=== PATIENT | male | born 1950 | race Caucasian/White ===

== ENCOUNTER → 2017-03-26 | Outpatient (CLI) | payer OTHER ==
[~2017-03-26] MED LIST: OMEG10007 PO; PRED20TA PO; SIMV20TA2 PO; TAMS0.4C38 PO
[2017-03-26 12:33] LABS: BLOOD UREA NITROGEN 11 mg/dl (7-18)
[2017-03-26 12:37] LABS: C-REACTIVE PROTEIN < 0.29 mg/dl (0-0.29)
[2017-03-27 12:07] LABS: CREATININE 0.98 mg/dl (0.60-1.40)
== END | disposition home or self-care (01) ==
LOC: C.LABBFT 10:38
PROVIDERS: ATTEND Physician Assistant
DX: Z00.00 Encounter for general adult medical examination without abnormal findings (principal); D32.9 Benign neoplasm of meninges, unspecified

== ENCOUNTER → 2017-03-28 | Outpatient (CLI) | payer OTHER ==
[~2017-03-28] MED LIST changes: +GADAVIST IV PRN
--- NOTE | 2017-03-28 08:36 | DIAGNOSTIC IMAGING REPORT ---
MRI OF THE BRAIN WITHOUT AND WITH IV CONTRAST CLINICAL HISTORY: MENINGIOMA LOSS OF SMELL/TASTE. COMPARISON STUDY: 09/12/2016 TECHNIQUE: MRI of the brain was performed from the vertex to the skull base utilizing various T1 and T2 weighted sequences. Following the IV administration of 8 mL of Gadavist contrast, additional enhanced images were obtained. FINDINGS: Sagittal T1, axial diffusion, proton density and T2 weighted axial, coronal FLAIR, and pre and post axial T1-weighted images were acquired. These were supplemented with post gadolinium coronal T1 weighted images. 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 This remain stable. Axial diffusion-weighted images reveal no evidence of acute or subacute infarction. There is no evidence of ventricular dilatation. Proton density T2-weighted and FLAIR images reveal scattered foci of increased T2 signal within the white matter, likely on a small vessel basis. There are no abnormal flow voids. No additional foci of pathologic enhancement are visualized. IMPRESSION: 1. No acute intracranial findings 2. Stable 18 mm enhancing extra-axial mass, anterior to the right temporal lobe. 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 03/28/2017 8:35 AM Dictated Date/Time: 03/28/2017 8:32 AM
== END | disposition home or self-care (01) ==
LOC: C.MRI 07:34
PROVIDERS: ATTEND Physician Assistant
DX: D32.9 Benign neoplasm of meninges, unspecified (principal)

== ENCOUNTER 2017-04-24 01:53 | Emergency (ER) | payer OTHER ==
[~2017-04-24 01:53] MED LIST changes: -GADAVIST IV PRN; -PRED20TA PO
[2017-04-24] MEDS ORDERED: FAMOTIDINE 20MG/102 ML D5W IV STA (01:59)
[2017-04-24] MEDS ORDERED: DiphenhydrAMINE HCL 50 MG/ML VIAL IV STA (01:59)
[2017-04-24] MEDS ORDERED: SODIUM CHLORIDE 0.9% 1000ML 1,000 ML IV STA (01:59)
[2017-04-24] MEDS ORDERED: DEXAMETHASONE SOD INJ 10 MG/ML VIAL IV ONE (02:00)
[2017-04-24] MEDS ORDERED: PRED20TA PO (02:08)
[2017-04-24 02:25] VITALS: PULSE 55
--- NOTE | 2017-04-24 04:17 | EMERGENCY ROOM VISIT NOTE ---
History Report prepared by Christa: Velia Quevedo Under the Supervision of: Dr. Manny Calderon M.D. First contact with patient: 01:58 Chief Complaint: ALLERGIC REACTION Stated Complaint: HIVES History of Present Illness The patient is a 66 year old male who presents to the Emergency Room with complaints of a sudden diffuse rash to his back and legs that began thirty minutes ago. The patient states that for lunch today he ate [place] food that had shellfish in it, but states that he often eats [place] food. He states that for dinner he had a hamburger and his notes that she used a steak seasoning, but additionally notes that she has used it in the past. The patient denies any shortness of breath, but states that the areas are itchy. He denies using any medications for his symptoms. The patient states that he does get bitten often, but denies any recent insect bites. He reports a history of an enlarged prostate and hyperlipidemia. Source of History: patient Onset: thirty minutes ago Position: arm (bilateral), back Quality: other (rash, diffuse) Timing: other (sudden) Associated Symptoms: No SOB Note: Associated Symptoms: itchiness Review of Systems See HPI for pertinent positives & negatives. A total of 10 systems reviewed and were otherwise negative. Past Medical & Surgical Medical Problems: (1) Enlarged prostate (2) Hyperlipidemia (3) Kidney stone (4) Pneumonia Surgical Problems: (1) H/O hernia repair Family History Diabetes mellitus FHx: cancer Social History Smoking Status: Never Smoker Smokeless Tobacco Use: No Alcohol Use: occasionally Marital Status: Housing Status: lives with significant other Occupation Status: retired Current/Historical Medications Scheduled Fish Oil ([place]-3), 1 CAP PO BID Prednisone (Prednisone), 0 PO DAILY Simvastatin (Zocor), 20 MG PO QPM Tamsulosin Hcl (Flomax), 0.4 MG PO QPM Allergies Coded Allergies: No Known Allergies (Unverified , 12/12/15) Physical Exam Vital Signs Date Time Temp Pulse Resp B/P (MAP) Pulse Ox O2 Delivery O2 Flow Rate FiO2 04/24/17 02:25 55 Pain Rating (0-10): 0 Physical Exam GENERAL: Patient is uncomfortable appearing and in moderate distress. HEENT: No acute trauma, normocephalic atraumatic, mucous membranes moist, no nasal congestion, no scleral icterus. NECK: No stridor, no adenopathy, no meningismus, trachea is midline. LUNGS: No dyspnea. Clear to auscultation and equal bilaterally. No wheeze, no rhonchi. HEART: Regular rate and rhythm. No murmurs, rubs, gallops appreciated. ABDOMEN: Soft, nontender, bowel sounds positive, no masses appreciated, no peritonitis. BACK: No midline tenderness, no CVA tenderness EXTREMITIES: Normal motion all extremities, no cyanosis, no edema. NEUROLOGIC: Alert and oriented, no acute motor or sensory deficits, no focal weakness, cranial nerves grossly intact. SKIN: Diffuse hives, erythema, and welts worse over his bilateral thighs and lower back, but extends over most of his body, no jaundice, no diaphoresis. Medical Decision & Procedures ED Course 0159: Ordered Sodium Chloride 1000 ml @ 999 mls/hr IV, Benadryl Inj 50 mg IV, Famotidine 20 mg IV, Decadron Inj 10 mg IV. 0201: The patient was evaluated in room B10. A complete history and physical exam was performed. 0221: I reevaluated the patient and he is feeling better and his rash is improving. 0330: I reevaluated the patient and he is feeling well. He has had complete resolution of his hives. I discussed the exam findings with him and I discussed the treatment plan. He verbalized complete understanding and agreement. He is ready to go home. Medical Decision Differential: Allergic Reaction, Urticaria, Anaphylaxis, Davison-Ted Syndrome, Toxic Epidermal Necrolysis, Erythema Multiforme, Cellulitis, amongst other etiologies entertained. Medication Reconciliation: I attest that I have personally reviewed the patient 's current medication list. Blood Pressure Screening: Patient was found to have a slightly elevated blood pressure due to circumstances. I do not believe that the patient requires hypertension monitoring. 66 yr old male arrives with quite impressive diffuse hives secondary to allergen of unknown etiology. Would suspect possibly something in seasoning he had on burger, possibly MSG as he had just had [place] earlier. Also notes periodic bug bites as well today. No respiratory nor mucosal involvement. Essentially completely resolved with above meds and patient feeling well. Discharged to home with prolonged pred taper given severity of symptoms on this trip. No indication for epi pen at this time. Follow up with PCP for further discussion. Impression Primary Impression: Allergic reaction Additional Impression: Full body hives Scribe Attestation The scribe's documentation has been prepared under my direction and personally reviewed by me in its entirety. I confirm that the note above accurately reflects all work, treatment, procedures, and medical decision making performed by me. Medication Reconciliation: I attest that I have personally reviewed the patient 's current medication list. Departure Information Dispostion Home / Self-Care Prescriptions Prednisone (Prednisone) 20 Mg Tab 0 PO DAILY, #18 TAB 3 DAILY FOR 3 DAYS, THEN 2 DAILY FOR 3 DAYS, THEN 1 DAILY FOR 3 DAYS. Prov: Manny Calderon M.D. 04/24/17 Forms HOME CARE DOCUMENTATION FORM, IMPORTANT VISIT INFORMATION Patient Instructions My [facility], ED Allergic Reaction General Other Problem Qualifiers
== END 2017-04-24 03:30 | disposition home or self-care (01) ==
LOC: C.EDB 01:54
DX: T78.40XA Allergy, unspecified, initial encounter (principal); X58.XXXA Exposure to other specified factors, initial encounter; L50.0 Allergic urticaria; N40.0 Benign prostatic hyperplasia without lower urinary tract symptoms; E78.5 Hyperlipidemia, unspecified; Z87.442 Personal history of urinary calculi; Z83.3 Family history of diabetes mellitus

== ENCOUNTER → 2017-12-24 | Outpatient (CLI) | payer OTHER ==
[2017-12-24 17:38] LABS: BASO % 0.4 %; BASO ABS # 0.02 K/uL (0-0.2); EOS % 1.3 %; EOS ABS # 0.06 K/uL (0-0.5); HEMATOCRIT 45.2 % (42-52); IG# 0.01 K/uL (0.00-0.02); LYMPH % 32.5 %; LYMPH ABS # 1.47 K/uL (1.2-3.4); MEAN CELL VOLUME 89.2 fL (80-100); MEAN CORPUSCULAR HEMOGLOBIN 29.6 pg (25-34); MEAN CORPUSCULAR HGB CONC 33.2 g/dl (32-36); MEAN PLATELET VOLUME 10.3 fL (7.4-10.4); MONO % 8.2 %; MONO ABS # 0.37 K/uL (0.11-0.59); NEUT % 57.4 %; PLATELET COUNT 186 K/uL (130-400); RED CELL DISTRIBUTION WIDTH CV 14.3 % (11.5-14.5); RED CELL DISTRIBUTION WIDTH SD 46.5 fL (36.4-46.3); WHITE BLOOD COUNT 4.53 K/uL (4.8-10.8)
[2017-12-24 17:45] LABS: BLOOD UREA NITROGEN 14 mg/dl (7-18); CARBON DIOXIDE 32 mmol/L (21-32); CREATININE 1.03 mg/dl (0.60-1.40); SODIUM 140 mmol/L (136-145)
[2017-12-24 17:51] LABS: PTT PATIENT 24.3 SECONDS (21.0-31.0)
== END | disposition home or self-care (01) ==
LOC: C.LABBFT 13:07
PROVIDERS: ATTEND Psychiatry & Neurology Neurology
DX: Z01.818 Encounter for other preprocedural examination (principal)

== ENCOUNTER → 2017-12-24 | Outpatient (CLI) | payer OTHER | END | disposition home or self-care (01) | LOC: C.CPL 14:15 | DX: Z01.818 Encounter for other preprocedural examination (principal) ==

== ENCOUNTER → 2017-12-29 | Outpatient (CLI) | payer OTHER ==
[~2017-12-29] MED LIST changes: +OPTIRAY 320 IV PRN; -SIMV20TA2 PO
--- NOTE | 2017-12-29 14:11 | DIAGNOSTIC IMAGING REPORT ---
SOFT TISSUE NECK WITH CLINICAL HISTORY: 67 years-old Male presenting with R22.0 Mass of pyriform sinus, dysphasia. TECHNIQUE: Multidetector CT of the neck was performed after the administration of intravenous contrast. IV contrast: 92 mL of Optiray 320. A dose lowering technique was used consistent with the principles of ALARA (as low as reasonably achievable). COMPARISON: None. CT DOSE (mGy.cm): The estimated cumulative dose is 574.94 mGy.cm. FINDINGS: [employer] Analyst topogram: Unremarkable. Streak artifact arising from amalgam significantly degrades evaluation of the oral cavity and oropharynx. Allowing for this, a hyperenhancing 2.2 x 1.1 x 2.6 cm mass effaces the left piriform sinus and appears to arise from the anterior wall of the hypopharynx. This extends along the left aryepiglottic fold. Nodular enhancement is noted immediately superior to the cricoid cartilage and posterior to the false vocal folds (series 3 image 273). Severe narrowing of the larynx evident. This also appears to invade the posterior aspect of the right paraglottic fat (series 3 image 260). The superior extent of the mass is located at the level of the hyoid bone and the inferior extent of the mass is located at the superior aspect of the cricoid cartilage. No lymphadenopathy. Cervical vasculature patent. Mild degenerative changes of the cervical spine. Lung apices clear. IMPRESSION: 1. Enhancing 2.2 x 1.1 x 2.6 cm mass centered at the left piriform sinus appears to arise from the anterior wall the hypopharynx and extends along the left aryepiglottic fold directly invading the posterior larynx and posterior right paraglottic fat. No lymphadenopathy. 2. Severe stenosis of the larynx. This is not entirely due to the mass and may be reactive secondary to edema. Direct visualization to be considered. Electronically signed by: Anjel Lei M.D. 12/29/2017 2:10 PM Dictated Date/Time: 12/29/2017 2:01 PM
== END | disposition home or self-care (01) ==
LOC: C.CTS 13:29
DX: R22.0 Localized swelling, mass and lump, head (principal)

== ENCOUNTER → 2017-12-30 | Outpatient (CLI) | payer OTHER ==
[~2017-12-30] MED LIST changes: +GADAVIST IV PRN; -OPTIRAY 320 IV PRN
--- NOTE | 2017-12-30 11:55 | DIAGNOSTIC IMAGING REPORT ---
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 There is no restricted diffusion to suggest acute or subacute infarction. The midline structures including the corpus callosum, brainstem, optic chiasm, pituitary and pineal glands appear unremarkable the sagittal T1 series. No cerebellar tonsillar herniation. Degenerative changes of the imaged cervical spine are noted. There is no acute intracranial hemorrhage, midline shift, abnormal extra-axial collections, hydrocephalus or intracranial mass. Mild degree of scattered T2/FLAIR hyperintensities are noted within the subcortical and periventricular white matter suggesting mild degree of chronic microvascular ischemic changes. The major flow voids at the level of the skull base appear to be patent. Mastoid air cells are clear. Orbits are symmetric and within normal limits. Mild mucosal thickening of the right maxillary and bilateral ethmoid air cells. Scalp, calvarium and soft tissues are within normal limits. Dural based 1.8 x 0.9 cm T1 and T2 isointense avidly enhancing homogeneous mass of the anterior right middle cranial fossa is redemonstrated, nicely seen on image 11 series 8 and image 8 of series 7 measuring 9 mm in craniocaudal dimension. This appears stable in size and appearance from comparison study. There is minimal mass effect upon the anterior right temporal lobe with associated edema or significant sulcal effacement. No additional abnormal intra-axial or extra-axial enhancement identified. IMPRESSION: 1. No acute intracranial abnormality identified. 2. Unchanged size and appearance of the 1.8 cm avidly enhancing dural based extra-axial mass of the anterior right middle cranial fossa abutting the anterior aspect of the right temporal lobe compatible with a meningioma. 3. No additional abnormal intra-axial or extra-axial enhancement. 4. Mild chronic microvascular ischemic changes. The above report was generated using voice recognition software. It may contain grammatical, syntax or spelling errors. Electronically signed by: Dougie Hodges M.D. 12/30/2017 11:54 AM Dictated Date/Time: 12/30/2017 11:46 AM
== END | disposition home or self-care (01) ==
LOC: C.MRIBC 10:50
PROVIDERS: ATTEND Psychiatry & Neurology Neurology
DX: D32.9 Benign neoplasm of meninges, unspecified (principal)

== ENCOUNTER → 2018-01-07 | Day surgery (SDC) | payer OTHER ==
[2017-12-25 15:15] VITALS: BMI 26.0
[~2018-01-07] VITALS: Ht 172.7 cm; Wt 79.5 kg
[~2018-01-07] MED LIST changes: +ACETAMINOPHEN/HYDROCODONE ELIX 15 ML/CUP UDP PO PRN; +ATROPINE SULFATE 0.1 MG/ML 5ML SYR IV PRN; +DEXAMETHASONE SOD INJ 4 MG/ML VIAL ONE; +EpHEDrine SULFATE INJ 50 MG/ML AMP IV PRN; +EpHEDrine SULFATE INJ 50 MG/ML AMP ONE; +EpINEphrine HCL INJ 1 MG/ML 1ML SYRINGE ONE; +FENTANYL CITRATE INJ 50 MCG/1 ML 2 ML VIAL IV PRN; +FENTANYL CITRATE INJ 50 MCG/1 ML 2 ML VIAL ONE; +FLUMAZENIL 0.1 MG/1 ML 10 ML VIAL IV PRN; -GADAVIST IV PRN; +GLYCOPYRROLATE INJ 0.2 MG/ML VIAL ONE; +LABETALOL HCL IV 5 MG/ML 20ML IV PRN; +LACTATED RINGER'S 1000ML 1,000 ML IV SCH; +LIDOCAINE HCL 2% 2 ML VIAL (20MG/ML) ONE; +MIDAZOLAM HCL 1 MG/ML 2ML VIAL ONE; +NALOXONE HCL 0.4 MG/1 ML VIAL/CARP IV PRN; +NEOSTIGMINE METHYLSULFATE 5 MG/5 ML SYR ONE; +ONDANSETRON INJ 2 MG/ML 2 ML VIAL IV PRN; +ONDANSETRON INJ 2 MG/ML 2 ML VIAL ONE; +PHENYLEPHRINE HCL INJ 10 MG/ML VIAL ONE; +PROMETHAZINE HCL INJ 12.5 MG in SODIUM CHLORIDE 0.9% 50ML 50 ML IV PRN; +PROPOFOL IV EMULSION 10 MG/ML 20 ML VIAL IV ONE; +SUCCINYLCHOLINE CHLORIDE 20 MG/ML 10 ML VIAL IV ONE
[2018-01-07 06:44] VITALS: BP 152/83; PULSE 66; TEMP 36.6; O2SAT 97; Ht 172.7 cm; Wt 79.5 kg
--- NOTE | 2018-01-07 06:53 | History & Physical Bridge Note ---
H&P Re-Evaluation Bridge Note: I have examined the patient, reviewed the History & Physical and in the interval since the performance of the History & Physical I have noted the following changes of clinical significance: No changes noted
--- NOTE | 2018-01-07 08:34 | [facility] Operative Report ---
Operative Report Operative Date Jan 07, 2018. Pre-Operative Diagnosis Mass of LEFT pyriform sinus Post-Operative Diagnosis LEFT Mass of pyriform sinus Procedure(s) Performed Direct Microlaryngoscopy with Biopsies Surgeon Dr. Juan Gonzalez Gathering Machine Feeder Surgeon(s) None Estimated Blood Loss 5 mL Findings LARGE EXOPHYTIC MASS INVOLVING LEFT PYRIFORM SINUS AND ARYEPIGLOTTIC FOLD Specimens Permanent specimens A: Left pyriform sinus mass Anesthesia Type General I attest to the content of the Intraoperative Record and any orders documented therein. Any exceptions are noted below.
--- NOTE | 2018-01-07 08:36 | Discharge Instructions ---
Discharge Instructions Date of Service Jan 07, 2018. Admission Reason for Admission: Pyriform Sinus Mass Discharge Discharge Diagnosis / Problem: SAME Discharge Goals Goal(s): Therapeutic intervention Activity Recommendations Activity Limitations: as noted below LIGHT ACTIVITY FOR 24-48HRS . Current Hospital Diet Patient's current hospital diet: Regular Diet Discharge Diet Recommended Diet: Regular Diet Procedures Procedures Performed: Direct Microlaryngoscopy with Biopsies Pending Studies Studies pending at discharge: no Medical Emergencies . Who to Call and When: Medical Emergencies: If at any time you feel your situation is an emergency, please call 911 immediately. . Non-Emergent Contact Non-Emergency issues call your: Surgeon . . "Provider Documentation" section prepared by Juan Gonzalez. .
--- NOTE | 2018-01-07 08:49 | OPERATIVE REPORT ---
DATE OF OPERATION: 01/07/2018 PREOPERATIVE DIAGNOSIS: Left piriform sinus mass. POSTOPERATIVE DIAGNOSIS: Same. PROCEDURE: Direct microlaryngoscopy with biopsy. SURGEON: Juan Gonzalez MD. METAL WORK DUCT INSTALLER: General endotracheal. ESTIMATED BLOOD LOSS: 5 mL. FINDINGS: Exophytic mass involving primarily the left piriform sinus, but also the left aryepiglottic fold. SPECIMENS: Left piriform sinus mass for permanent pathological assessment. COMPLICATIONS: None. INDICATIONS FOR THE PROCEDURE: The patient is a 67-year-old male with a 4-month history of dysphagia who was found to have a left piriform sinus mass in my office. A CT scan of the neck with IV contrast showed approximate 2 cm left piriform sinus mass that seemed to emanate off the anterior wall of the hypopharynx and involve the aryepiglottic fold as well as the piriform sinus. There is no cervical lymphadenopathy. The patient presents for direct microlaryngoscopy with biopsies. DESCRIPTION OF PROCEDURE: After informed consent had been obtained from the patient, the patient was wheeled to the operating room and placed on the operating room table in supine position. Monitors were placed. After induction of general endotracheal anesthesia with a size 6 endotracheal tube using a GlideScope by anesthesia, the table was turned to 90 degrees and the patient was placed in the sniffing position. A tooth guard was placed over the maxillary dentition. The operating microscope was used to inspect the oral cavity, oropharynx, hypopharynx, and larynx. Intraoperative findings were of an exophytic mass within the left piriform sinus that also involved the left aryepiglottic fold. Cup forceps was used to take multiple biopsies of the exophytic mass which was sent off for permanent pathological assessment. Topical epinephrine 1:1000 was placed on pledgets on to the biopsy sites for hemostatic effect. After several minutes, the pledgets were removed. Of note, photodocumentation of the lesion was performed using a bare telescope and magnification. An LTA was then administered. This marked the end of the case. The patient tolerated the procedure well. There were no apparent complications. All the instrumentation and mouthguard was removed. The patient was extubated and transferred to recovery room in stable condition. I attest to the content of the Intraoperative Record and any orders documented therein. Any exception s are noted below.
--- NOTE | 2018-01-07 09:36 | Anesthesiology Progress Note ---
Anesthesia Post Op Note Date & Time Jan 07, 2018 at 09:35 Vital Signs Pain Intensity: 0 Vital Signs Past 12 Hours Date Time Temp Pulse Resp B/P (MAP) Pulse Ox O2 Delivery O2 Flow Rate FiO2 01/07/18 09:25 67 18 125/81 97 Room Air Oxymask 01/07/18 09:15 70 18 122/84 98 Room Air Oxymask 01/07/18 09:05 63 16 125/79 100 Oxymask 5 01/07/18 08:59 36.0 76 16 140/85 100 Oxymask 10 01/07/18 06:44 36.6 66 18 152/83 (106) 97 Room Air Notes Mental Status: alert / awake / arousable, participated in evaluation Pt Amnestic to Procedure: Yes Nausea / Vomiting: adequately controlled Pain: adequately controlled Airway Patency, RR, SpO2: stable & adequate BP & HR: stable & adequate Hydration State: stable & adequate Anesthetic Complications: no major complications apparent
[2018-01-07 09:39] VITALS: BP 117/78; PULSE 64; TEMP 36.4; O2SAT 96
[2018-01-07 10:09] VITALS: BP 120/77; PULSE 71; TEMP 36.4; O2SAT 96
== END | disposition home or self-care (01) ==
LOC: C.ACU 06:26
DX: C12 Malignant neoplasm of pyriform sinus (principal); Z98.890 Other specified postprocedural states; N40.0 Benign prostatic hyperplasia without lower urinary tract symptoms

== ENCOUNTER → 2018-01-19 | Outpatient (CLI) | payer OTHER ==
[~2018-01-19] MED LIST changes: -ACETAMINOPHEN/HYDROCODONE ELIX 15 ML/CUP UDP PO PRN; -ATROPINE SULFATE 0.1 MG/ML 5ML SYR IV PRN; -DEXAMETHASONE SOD INJ 4 MG/ML VIAL ONE; -EpHEDrine SULFATE INJ 50 MG/ML AMP IV PRN; -EpHEDrine SULFATE INJ 50 MG/ML AMP ONE; -EpINEphrine HCL INJ 1 MG/ML 1ML SYRINGE ONE; -FENTANYL CITRATE INJ 50 MCG/1 ML 2 ML VIAL IV PRN; -FENTANYL CITRATE INJ 50 MCG/1 ML 2 ML VIAL ONE; -FLUMAZENIL 0.1 MG/1 ML 10 ML VIAL IV PRN; -GLYCOPYRROLATE INJ 0.2 MG/ML VIAL ONE; -LABETALOL HCL IV 5 MG/ML 20ML IV PRN; -LACTATED RINGER'S 1000ML 1,000 ML IV SCH; -LIDOCAINE HCL 2% 2 ML VIAL (20MG/ML) ONE; -MIDAZOLAM HCL 1 MG/ML 2ML VIAL ONE; -NALOXONE HCL 0.4 MG/1 ML VIAL/CARP IV PRN; -NEOSTIGMINE METHYLSULFATE 5 MG/5 ML SYR ONE; -ONDANSETRON INJ 2 MG/ML 2 ML VIAL IV PRN; -ONDANSETRON INJ 2 MG/ML 2 ML VIAL ONE; -PHENYLEPHRINE HCL INJ 10 MG/ML VIAL ONE; -PROMETHAZINE HCL INJ 12.5 MG in SODIUM CHLORIDE 0.9% 50ML 50 ML IV PRN; -PROPOFOL IV EMULSION 10 MG/ML 20 ML VIAL IV ONE; -SUCCINYLCHOLINE CHLORIDE 20 MG/ML 10 ML VIAL IV ONE
--- NOTE | 2018-01-19 17:59 | DIAGNOSTIC IMAGING REPORT ---
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 TECHNIQUE: PET/CT was performed from the vertex through the proximal thighs following the intravenous administration of 9.567 mCi of F18-FDG. Blood glucose level 65 mg/dL. The injection was performed at 12:28 PM and imaging began at 1:58 PM of the head and neck and 2:15 PM of the body. Unenhanced CT was performed for attenuation correction purposes and anatomic localization. COMPARISON: Nondiagnostic radiation therapy planning CT from 01/16/[address] neck from 12/29/2017. CT DOSE (mGy.cm): The estimated cumulative dose is 1156.30 of the body and 407.79 of the head and neck. FINDINGS: Head and neck: FDG avid mass centered at the left piriform sinus best characterized anatomically on prior contrast enhanced CT of the neck from 12/29/2017 (max SUV 12.94). No FDG avid cervical lymphadenopathy. No photopenic regions in the brain parenchyma. Chest: Normal thyroid and thoracic inlet. Few calcified mediastinal and left hilar lymph nodes noted likely indicating prior granulomatous infection. Normal aorta. Mild multichamber enlargement of the heart. Coronary artery calcification. No pericardial or pleural effusion. Minimal dependent changes likely atelectasis. Calcified granuloma noted in the left upper lobe. No FDG avid focal nodule or infiltrate. Airways patent. Abdomen and pelvis: Normal physiologic distribution of radiotracer in the gastrointestinal and genitourinary tracts. No FDG avid lymphadenopathy or mass lesion. Parenchymal calcifications in the spleen likely indicate prior granulomatous infection. Enlarged prostate with bladder wall thickening likely indicating chronic bladder outlet obstruction. Limited diverticula noted in the sigmoid colon. Small hiatal hernia. Fat-containing left inguinal hernia. Vague fluid density in the region of the deep ring left inguinal canal likely indicates encysted hydrocele or varicocele. Musculoskeletal: No FDG-avid or destructive osseous lesion. IMPRESSION: 1. Initial PET/CT demonstrates FDG avid mass centered at the left piriform sinus. No FDG regional lymphadenopathy. No sites of metastatic disease. 2. Cardiomegaly. 3. Evidence of prior granulomatous infection. Electronically signed by: Anjel Lei M.D. 01/19/2018 5:57 PM Dictated Date/Time: 01/19/2018 5:41 PM
== END | disposition home or self-care (01) ==
LOC: C.PET 11:41
DX: C12 Malignant neoplasm of pyriform sinus (principal)